=== PATIENT | female | born 1935 | race Caucasian/White ===

== ENCOUNTER → 2016-12-06 | Outpatient (CLI) | payer OTHER, BC ==
[~2016-12-06] MED LIST: AMLO2.5T PO; BACL10TA PO; CLOP1TAB54 PO; FERR325T51 PO; FLV1 PO; GABA-113 PO; GLC/500 PO; INSUINJ8 SC; L-ME1CAP3 PO; LISI20TA3 PO; METH10TA32 PO; SIMVASTATIN; SYMIN160 INH; [UNRECOGNIZED DRUG - CODE] PO
--- NOTE | 2016-12-08 08:10 | CODING QUERY NO DIAGNOSIS ---
: 1935 TREATMENT RENDERED WITHOUT A DIAGNOSIS To promote full compliance with coding requirements relating to patient care, physician participation is requested in all cases of [employer] travel counselor uncertainty. Please assist us with providing a diagnosis/symptom for the test(s) below: A diagnosis/symptom was not documented on your Order. A valid diagnosis/symptom is required to bill all insurances. Please remember that we are unable to code a diagnosis of rule out, probable, possible, questionable, or suspected. Tests that require a diagnosis: DOS: 12/06/16 * PD-L1 DIAGNOSIS: Provider Signature: Date: Thank you Kacey Olson [facility] Information Management Once completed, please kindly fax back to [phone] For questions please call [phone]
== END | disposition home or self-care (01) ==
LOC: C.LABSPEC 14:41
PROVIDERS: ATTEND Pathology Anatomic Pathology & Clinical Pathology
DX: C34.90 Malignant neoplasm of unspecified part of unspecified bronchus or lung (principal)